=== PATIENT | female | born 1955 | race Two or more races ===

== ENCOUNTER 2021-06-03 13:52 | Emergency (ER) | payer OTHER ==
[~2021-06-03] VITALS: Ht 160 cm; Wt 55.3 kg
--- NOTE | 2021-06-03 15:00 | NUR ---
patient was c/o lower back pain,. patient noted has pain almost 10 days, but todaypain get more wors, vss, seen ER MD. will folow up plan of care.
[2021-06-03 15:09] LABS: BASOPHILS % (AUTO) 0.7 % (0.0-2.0); EOSINOPHILS % (AUTO) 1.6 % (0.0-6.0); HEMATOCRIT 40 % (33-45); HEMOGLOBIN 13.7 g/dL (11.5-14.8); LYMPHOCYTES # (AUTO) 1.4 K/uL (0.8-4.8); LYMPHOCYTES % (AUTO) 27.1 % (20.0-44.0); MEAN CORPUSCULAR HGB CONC 35 g/dl (31.0-36.0); MEAN CORPUSCULAR VOLUME 95 fL (82-100); MONOCYTES # (AUTO) 0.3 K/uL (0.1-1.30); MONOCYTES % (AUTO) 5.6 % (2.0-12.0); NEUTROPHILS # (AUTO) 3.3 K/uL (1.8-8.9); PLATELET COUNT (AUTO) 149 K/uL (150-450); RED BLOOD CELL COUNT(AUTO) 4.18 MIL/uL (4.0-5.2)
[2021-06-03 15:16] LABS: CALCIUM, SERUM 8.6 mg/dL (8.5-10.1); CREATININE 0.5 mg/dL (0.6-1.3); POTASSIUM 3.7 mmol/L (3.5-5.1)
[2021-06-03] MEDS ORDERED: METH4TAB17 PO (15:44)
[2021-06-03] MEDS ORDERED: IBUP-1955 PO (15:44)
[2021-06-03] MEDS ORDERED: OXYC5CAP18 PO (15:44)
[2021-06-03] MEDS ORDERED: CYCL5TAB PO (15:44)
[2021-06-03 15:51] VITALS: BP 110/64
--- NOTE | 2021-06-03 15:52 | NUR ---
patient discharge home at this time on stable condirtion. Prescrition randy curtisc/o pain 2/10 per pain scale. explained patient medication intacke and will follow pcp. patient verbalized understanding, sign paperwork. 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
[2021-06-03] MEDS ORDERED: KETOROLAC TROMETHAMINE INJ 30 MG/ML VIAL IV ONE (16:00)
[2021-06-03] MEDS ORDERED: CYCLOBENZAPRINE 10 MG TABLET PO ONE (16:00)
[2021-06-03] MEDS ORDERED: DEXAMETHASONE SOD PHOSPHATE 10 MG/ML VIAL IV ONE (16:00)
== END 2021-06-03 15:52 | disposition home or self-care (01) ==
LOC: ER 13:58
DX: M54.50 Low back pain, unspecified (principal); R20.2 Paresthesia of skin; Z79.899 Other long term (current) drug therapy
CPT/HCPCS: 36415; 72131-TC; 80048-TC; 85025-TC